=== PATIENT | male | born 1980 | race Caucasian/White ===

== ENCOUNTER 2019-10-06 09:02 | Emergency (ER) | payer OTHER ==
[~2019-10-06] VITALS: Ht 182.9 cm; Wt 81.7 kg
[2019-10-06 10:06] LABS: URINE BILIRUBIN NEGATIVE (Negative); URINE BLOOD NEGATIVE (Negative); URINE CLARITY CLEAR; URINE COLOR YELLOW; URINE GLUCOSE-RANDOM NEGATIVE (Negative); URINE KETONES TRACE (Negative); URINE LEUKOCYTES-REFLEX NEGATIVE (Negative); URINE NITRITE-REFLEX NEGATIVE (Negative); URINE PROTEIN NEGATIVE (Negative)
[2019-10-06 10:06] LABS: ABSOLUTE LYMPHOCYTES 1.5 thou/uL (0.8-5.3); ABSOLUTE MONOCYTES 0.5 thou/uL (0.0-1.2); BASOPHILS 0.1 %; EOSINOPHILS 0.3 %; HEMATOCRIT 44.1 % (42.0-52.0); HEMOGLOBIN 15.5 gm/dL (14.0-18.0); LYMPHOCYTES 13.8 %; MCH 30.6 pg (26.0-34.0); MCHC 35.2 g/dL (28.0-37.0); MCV 86.9 fL (80.0-100.0); MONOCYTES 4.6 %; MPV 7.9 fl. (7.2-11.1); NUCLEATED RBCS 0 /100WBC; PLATELET COUNT* 262 thou/uL (150-400); POLYS 81.2 %; RBC 5.08 mil/uL (4.50-6.00); RDW-CV 12.7 % (10.5-14.5); WBC 11.1 thou/uL (4.0-11.0)
[2019-10-06 10:13] LABS: CALCIUM 9.9 mg/dL (8.5-10.1); CREATININE 1.1 mg/dL (0.6-1.3); POTASSIUM 3.5 mmol/L (3.5-5.1)
[2019-10-06 10:15] LABS: AMP/METHAMP Negative (Negative); BARBITURATES Negative (Negative); BENZODIAZEPINES Negative (Negative); COCAINE Negative (Negative); METHADONE Negative (Negative); OPIATES Negative (Negative); PCP Negative (Negative); THC POSITIVE (Negative)
[2019-10-06 10:18] LABS: ALBUMIN 4.2 g/dL (3.4-5.0); TOTAL BILIRUBIN 1.1 mg/dL (<0.1-1.0); TOTAL PROTEIN 7.3 g/dL (6.4-8.2)
[2019-10-06] MEDS ORDERED: ZOFRAN ODT4 MG DISSOLVE (12:04)
[2019-10-06] MEDS ORDERED: NORCO 5-325 TA1 EAC1 PO (12:04)
[2019-10-06 12:17] VITALS: BP 132/66
== END 2019-10-06 12:18 | disposition home or self-care (01) ==
LOC: M.ERS 09:02
PROVIDERS: Emergency Medicine Emergency Medical Services
DX: R10.84 Generalized abdominal pain (principal); R11.2 Nausea with vomiting, unspecified